=== PATIENT | female | born 1935 | race Hispanic/Latino ===

== ENCOUNTER 2018-04-17 17:37 | Emergency (ER) | payer OTHER, MEDICARE ==
[2018-04-17 17:51] VITALS: BP 176/64; PULSE 69; RESP 16; TEMP 98.5; O2SAT 98
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
[2018-04-17] MEDS ORDERED: Lidocaine 5% Patch TD STA (17:53)
[2018-04-17] MEDS ORDERED: Lidocaine 5% Patch TD ONE (18:14)
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
== END 2018-04-17 18:32 | disposition home or self-care (01) ==
LOC: C.ER 17:37
DX: S00.431A Contusion of right ear, initial encounter (principal); S40.021A Contusion of right upper arm, initial encounter; V49.59XA Passenger injured in collision with other motor vehicles in traffic accident, initial encounter; Y92.410 Unspecified street and highway as the place of occurrence of the external cause